=== PATIENT | female | born 1935 | race Caucasian/White ===

== ENCOUNTER 2023-04-25 04:33 | Emergency (ER) | payer MEDICARE ==
[~2023-04-25] VITALS: Ht 152.4 cm; Wt 47.2 kg
[2023-04-25] MEDS ORDERED: HYDROCODONE/ACETAMINOPHEN 5/325 MG TAB PO ONE (05:00)
[2023-04-25 09:08] VITALS: BP 133/78; PULSE 78; RESP 18; O2SAT 98
== END 2023-04-25 09:09 | disposition home or self-care (01) ==
LOC: EDH 04:33
DX: S50.312A Abrasion of left elbow, initial encounter (principal); I10 Essential (primary) hypertension; Z98.890 Other specified postprocedural states; X58.XXXA Exposure to other specified factors, initial encounter; Y93.89 Activity, other specified; Y92.89 Other specified places as the place of occurrence of the external cause; Y99.8 Other external cause status
CPT/HCPCS: 71045; 73070; 73502